=== PATIENT | female | born 2000 | race Caucasian/White ===

== ENCOUNTER 2021-07-10 10:37 | Emergency (ER) | payer BC ==
[2021-07-10] MEDS ORDERED: Sodium Chloride 0.9% 1,000 ML IV ONE (11:21)
[2021-07-10 11:40] LABS: BLOOD UREA NITROGEN,BUN 14 mg/dL (7.0-18.0); CARBON DIOXIDE,CO2 28.5 mmol/L (21.0-32.0); CHLORIDE,CL 103 mmol/L (98-107); GLUCOSE RANDOM 92 mg/dL (74-106); POTASSIUM,K 3.9 mmol/L (3.5-5.1); SODIUM,NA 139 mmol/L (136-145)
[2021-07-10] MEDS ORDERED: cefTRIAXone 1 GM in Sodium Chloride 0.9% 50 ML IV ONE (12:36)
[2021-07-10] MEDS ORDERED: metroNIDAZOLE 250 MG Tab PO ONE (12:56)
[2021-07-10 14:15] LABS: C. TRACHOMATIS BY PCR NOT DETECTED; N. GONORRHOEAE BY PCR NOT DETECTED
== END 2021-07-10 13:33 | disposition home or self-care (01) ==
LOC: MW.ED 10:37
DX: N76.0 Acute vaginitis (principal); B96.89 Other specified bacterial agents as the cause of diseases classified elsewhere; N30.91 Cystitis, unspecified with hematuria; D72.829 Elevated white blood cell count, unspecified; Z91.041 Radiographic dye allergy status; Z79.899 Other long term (current) drug therapy; Z86.16 Personal history of COVID-19
CPT/HCPCS: 36415; 74176; 76830; 80053; 81001; 81025; 85025; 87086; 87480; 87491; 87510; 87591; 87660; 96365; 99284; A9270; J0696; J7030; 87088; 87186; 99283